=== PATIENT | male | born 1980 | race African-American/Black ===

== ENCOUNTER → 2020-06-19 15:45 | Outpatient (CLI) | payer OTHER, SELFPAY ==
--- NOTE | 2020-06-19 | DI.ECHO.S_ITS ---
Version: 1 Study ID: [id number] [place] [id number] Name: MARIXA BARRETT Study Date: 06/19/2020, 4: 00 PM : 1980 BP: 124 / 78 mmHg Gender: Male Height: 67 in Age: 40 Years Weight: 189 lb BSA: 1.97 mA? Clinician: Marilou Headley Reason For Study: Heart issues/ History of syncope History: Summary Statements Normal sinus rhythm. Normal LV size, wall thickness, wall motion and LV systolic function. EF is 55-60%. Normal chamber sizes. No valvular abnormalities. No prior study available for comparison. Procedure: A two-dimensional transthoracic echocardiogram with color flow and Doppler was performed. The study quality was technically adequate. Comparison is made with the echocardiogram of 04/05/19. The patient was in normal sinus rhythm during the exam. Left Ventricle: Diastolic parameters suggest probable normal left ventricular diastolic function and normal filling pressures. The ejection fraction is estimated to be 55-60%. The left ventricle is normal in size, wall thickness, and systolic function without any focal wall motion abnormalities. Right Ventricle: The right ventricle is normal in size and function. Atria: There is no Doppler evidence for an interatrial shunt. Both atria are normal in size. Mitral Valve: There is trace mitral regurgitation. The mitral valve is normal in structure and function. Aortic Valve: No aortic regurgitation is present. The aortic valve is trileaflet. The aortic valve opens well. Tricuspid Valve: There is mild tricuspid regurgitation. The right ventricular systolic pressure is estimated to be at least 22 mmHg based on an estimated right atrial pressure of 3 mm Hg. The tricuspid valve is normal in structure and function. Pulmonic Valve: There is trace pulmonic regurgitation. The pulmonic valve is not well seen, but is grossly normal. Great Vessels: The ascending aorta is normal in size. The aortic root is normal size. The IVC is of normal diameter and collapses greater than 50% with a sniff. This suggests a low right atrial pressure of 3 mm Hg. The pulmonary artery is not well visualized, but is probably normal size. Pericardium/ Pleura: There is no pericardial effusion. There is no pleural effusion. 2D and M-Mode Measurements and Calculations LVIDd: 5.3 cm AoV Openin.21 cm LVIDs: 3.3 cm LVOT diam: 2.23 cm IVSd: 0.76 cm Ao root diam: 3.7 cm LVPWd: 0.74 cm asc Aorta Diam: 3.2 cm LV munoz. diameter/BSA (cm/m^2): 2.7 LV sys. diameter/BSA (cm/m^2): 1.65 EPSS: 0.45 cm RVD1 (basal): 3.8 cm TAPSE: 1.73 cm LA A4 area: 16.3 phonograph mechanic? RA area: 15.2 phonograph mechanic? LA A2 area: 19.6 phonograph mechanic? RA long axis: 4.4 cm LA length (vol): 5.3 cm RA vol: 44.8 ml LA vol: 51.3 ml RA : 22.7 ml/mA? LA vol index: 26.0 ml/mA? Doppler Measurements and Calculations Ao V2 max: 130.9 cm/sec LVOT Max Carlton: 89.6 cm/sec Ao V2 mean: LV V1 max P.2 mmHg Ao V2 VTI: LV V1 VTI: 17.9 cm Ao max P.9 mmHg Ao mean PG: CARRIE(V,D): 2.7 phonograph mechanic? MV E max carlton: 86.8 cm/sec MV P1/2t: 50.3 msec MV A max carlton: 55.4 cm/sec MVA(P1/2t): 4.4 phonograph mechanic? MV E/A: 1.57 Med Peak E' Carlton: 8.5 cm/sec Lat Peak E' Carlton: 12.7 cm/sec E/e' average: 8.5 TR max carlton: 218.6 cm/sec PA V2 max: 66.8 cm/sec TR max P.1 mmHg PA mean PG: PA Accel Time: 0.09 sec Electronically signed by: Stacy Vernon M.D. 06/20/2020, 2: 20 AM
== END ==
PROVIDERS: PCP Family Medicine; Referring Provider Family Medicine; Visit Provider Physician Assistant
DX: I07.1 Rheumatic tricuspid insufficiency (principal); R55 Syncope and collapse
CPT/HCPCS: 93306